=== PATIENT | female | born 1950 ===

== ENCOUNTER 2020-11-12 04:24 | Inpatient (IN) | payer OTHER, BC ==
[2020-11-12] MEDS ORDERED: fentaNYL CITRATE 250 MCG/5 ML VIAL ONE (12:23)
[2020-11-12] MEDS ORDERED: MIDAZOLAM HCL 2 MG/2 ML SINGLE DOSE VIAL ONE (12:23)
[2020-11-12] MEDS ORDERED: TRANEXAMIC ACID 1000 MG/10 ML VIAL ONE ×2 (12:24→13:40)
[2020-11-12] MEDS ORDERED: CLINDAMYCIN PHOSPHATE 600 MG/4 ML VIAL ONE (12:24)
[2020-11-12] MEDS ORDERED: ACETAMINOPHEN INJECTION 100 ML IVPB ONE (12:28)
[2020-11-12] MEDS ORDERED: BUPIVACAINE HCL/PF 0.5% (5MG/ML) 10 ML VIAL ONE (12:36)
[2020-11-12] MEDS ORDERED: THROMBIN (BOVINE) 20,000 UNIT VIAL TP ONE (12:36)
[2020-11-12] MEDS ORDERED: BUPIVACAINE LIPOSOME/PF (EXPAREL) 266 MG/20 ML VIAL ONE (12:36)
[2020-11-12] MEDS ORDERED: VANCOMYCIN 1,000 MG VIAL (RESTRICTED TO ID ONLY) ONE (12:40)
[2020-11-12] MEDS ORDERED: GENTAMICIN SO4 80 MG/2 ML VIAL ONE (12:40)
[2020-11-12] MEDS ORDERED: ROCURONIUM BROMIDE 50 MG/5 ML SYRINGE ONE ×3 (12:57→16:11)
[2020-11-12] MEDS ORDERED: ceFAZolin SODIUM 1 GM VIAL IVPB ONE (13:25)
[2020-11-12] MEDS ORDERED: VANCOMYCIN 1,000 MG VIAL (RESTRICTED TO ID ONLY) IVPB ONE (13:25)
[2020-11-12] MEDS ORDERED: EPHEDRINE SULFATE/0.9% NACL/PF 50 MG/10 ML SYRINGE NR ONE (14:28)
[2020-11-12] MEDS ORDERED: NEOSTIGMINE METHYLSULFATE 0.5 MG/1 ML - 10 ML MDV ONE ×2 (14:55→18:30)
[2020-11-12] MEDS ORDERED: THROMBIN (BOVINE) 5,000 UNIT VIAL TP ONE (14:55)
[2020-11-12] MEDS ORDERED: GELATIN, ABSORBABLE 100 EACH SPONGE TP ONE (14:56)
[2020-11-12] MEDS ORDERED: GLYCOPYRROLATE 0.2 MG/1 ML VIAL ONE ×2 (14:58→18:31)
[2020-11-12] MEDS ORDERED: BUPIVACAINE LIPOSOME/PF (EXPAREL) 266 MG/20 ML VIAL NR ONE ×2 (15:11→17:00)
[2020-11-12] MEDS ORDERED: BUPIVACAINE HCL/PF 0.5% (5 MG/ML) 30 ML VIAL IJ ONE ×2 (15:12→17:00)
[2020-11-12] MEDS ORDERED: diazePAM CARPU-JECT 10 MG/2 ML DISP.SYRIN IVPUSH PRN (19:29)
[2020-11-12] MEDS ORDERED: ONDANSETRON 4 MG/2 ML VIAL IVPUSH PRN (19:29)
[2020-11-12] MEDS ORDERED: LACTATED RINGERS SOLUTION 1,000 ML IV SCH (19:30)
[2020-11-12 20:36] LABS: HEMATOCRIT 32.2 % (32.4-45.2); HEMOGLOBIN 10.6 GM/dL (10.7-15.3); MCH 28.3 pg (25.7-33.7); MEAN CELL VOLUME 85.7 fl (80-96); MEAN PLT VOLUME 9.1 fl (7.5-11.1); PLATELET COUNT 187 K/MM3 (134-434); RBC 3.76 M/mm3 (3.60-5.2); RDW 13.6 % (11.6-15.6); WHITE BLOOD COUNT 14.1 K/mm3 (4.0-10.0)
[2020-11-12] MEDS ORDERED: diazePAM CARPU-JECT 10 MG/2 ML DISP.SYRIN ONE (21:13)
[2020-11-12 21:54] LABS: HIV INTERPRETATION NEGATIVE (NEGATIVE)
[2020-11-12] MEDS: CLINDAMYCIN 900 MG PREMIX IVPB 900 MG/50 ML BAG IVPB SCH (22:49)
[2020-11-12] MEDS: LACTATED RINGERS SOLUTION 1,000 ML IV SCH (22:49)
[2020-11-12] MEDS: GABAPENTIN 300 MG CAPSULE PO SCH (22:50)
[2020-11-12] MEDS: HYDROmorphone HCl 2 MG/ML VIAL SQ PRN (22:50)
[2020-11-12] MEDS ORDERED: CEFAZOLIN 2 GM/D5W 2 GM/50 ML ML IVPB SCH (23:00)
[2020-11-12 23:27] LABS: URINE APPEARANCE CLEAR; URINE BILIRUBIN NEGATIVE (NEGATIVE); URINE COLOR YELLOW; URINE GLUCOSE (UA) NEGATIVE (NEGATIVE); URINE KETONE NEGATIVE (NEGATIVE); URINE LEUK ESTERASE NEGATIVE (NEGATIVE); URINE NITRITE NEGATIVE (NEGATIVE); URINE PROTEIN NEGATIVE (NEGATIVE); URINE UROBILINOGEN 0.2 mg/dL (0.2-1.0)
[2020-11-12 23:28] LABS: CALCIUM 8.4 mg/dL (8.5-10.1)
[2020-11-12 23:29] LABS: BLOOD UREA NITROGEN 14.3 mg/dL (7-18)
[2020-11-12] MEDS ORDERED: AZTREONAM 2 GRAM SYRINGE 2 GM/10 ML DISP.SYRIN IVPUSH ONE ×2 (23:30→23:45)
[2020-11-12 23:32] LABS: CREATININE 0.9 mg/dL (0.55-1.3)
[2020-11-12] MEDS ORDERED: AZTREONAM IVPB ONE (23:45)
[2020-11-12] MEDS ORDERED: WATER IVPB ONE (23:45)
[2020-11-12] MEDS ORDERED: DEXTROSE 5% IVPB ONE (23:45)
[2020-11-13] MEDS: CLINDAMYCIN 900 MG PREMIX IVPB 900 MG/50 ML BAG IVPB SCH ×4 (02:21→21:07)
[2020-11-13] MEDS: ACETAMINOPHEN 1000 MG/100 ML VIAL (NON FORMULARY) IVPB PRN ×2 (02:21→18:35)
[2020-11-13] MEDS: oxyCODONE HCL 5 MG TABLET PO PRN ×3 (04:21→18:30)
[2020-11-13] MEDS: HYDROmorphone HCl 2 MG/ML VIAL SQ PRN ×3 (04:44→21:00)
[2020-11-13] MEDS ORDERED: LEVOTHYROXINE NA 112 MCG TABLET (FP) ONE (05:19)
[2020-11-13] MEDS ORDERED: LEVOTHYROXINE NA 25 MCG TABLET (FP) ONE (05:19)
[2020-11-13] MEDS: LEVOTHYROXINE 112 MCG, LEVOTHYROXINE 25 MCG PO SCH (06:03)
[2020-11-13] MEDS: LACTATED RINGERS SOLUTION 1,000 ML IV SCH (08:36)
[2020-11-13 09:01] LABS: BASO % 0.2 % (0-2.0); EOS % 0.2 % (0-4.5); HEMATOCRIT 28.1 % (32.4-45.2); HEMOGLOBIN 9.4 GM/dL (10.7-15.3); MCH 28.7 pg (25.7-33.7); MCHC 33.4 g/dl (32.0-36.0); MEAN PLT VOLUME 9.6 fl (7.5-11.1); MONO % 8.4 % (3.8-10.2); NEUT % 82.2 % (42.8-82.8); PLATELET COUNT 177 K/MM3 (134-434); RBC 3.27 M/mm3 (3.60-5.2); RDW 13.6 % (11.6-15.6); WHITE BLOOD COUNT 14.6 K/mm3 (4.0-10.0)
[2020-11-13] MEDS: SERTRALINE HCL 50 MG TABLET (FP) PO SCH (09:05)
[2020-11-13] MEDS: GABAPENTIN 300 MG CAPSULE PO SCH ×2 (09:05→21:12)
[2020-11-13 09:31] LABS: ALBUMIN 3.3 g/dl (3.4-5.0); CALCIUM 8.4 mg/dL (8.5-10.1)
[2020-11-13 09:37] LABS: BILIRUBIN,TOTAL 0.7 mg/dL (0.2-1); TOT PROT 6.1 g/dl (6.4-8.2)
[2020-11-13] MEDS ORDERED: PATIENT'S OWN MEDICATION (NON-FORMULARY) (Levothyroxine Sodium [Levothyroxine] 137 MCG Cap PO SCH (10:00)
[2020-11-13] MEDS ORDERED: LACTATED RINGERS SOLUTION 1,000 ML IV SCH (18:22)
[2020-11-13] MEDS: DOCUSATE SODIUM 100 MG CAPSULE (FP) PO SCH (21:12)
[2020-11-13] MEDS: ROSUVASTATIN CA 20 MG TABLET (FP) PO SCH (21:12)
[2020-11-14] MEDS: CLINDAMYCIN 900 MG PREMIX IVPB 900 MG/50 ML BAG IVPB SCH ×2 (03:16→08:51)
[2020-11-14] MEDS: HYDROmorphone HCl 2 MG/ML VIAL SQ PRN (03:16)
[2020-11-14] MEDS ORDERED: morphine SULFATE 4 MG/ML VIAL IVPUSH ONE (04:13)
[2020-11-14] MEDS ORDERED: LEVOTHYROXINE NA 112 MCG TABLET (FP) ONE (05:53)
[2020-11-14] MEDS ORDERED: LEVOTHYROXINE NA 25 MCG TABLET (FP) ONE (05:53)
[2020-11-14] MEDS: LEVOTHYROXINE 112 MCG, LEVOTHYROXINE 25 MCG PO SCH (06:10)
[2020-11-14 08:46] LABS: HEMATOCRIT 26.4 % (32.4-45.2); HEMOGLOBIN 8.7 GM/dL (10.7-15.3); MCH 28.5 pg (25.7-33.7); MCHC 32.8 g/dl (32.0-36.0); MEAN CELL VOLUME 86.9 fl (80-96); MEAN PLT VOLUME 9.8 fl (7.5-11.1); PLATELET COUNT 192 K/MM3 (134-434); RBC 3.04 M/mm3 (3.60-5.2)
[2020-11-14] MEDS: ACETAMINOPHEN 1000 MG/100 ML VIAL (NON FORMULARY) IVPB PRN (08:50)
[2020-11-14] MEDS: ONDANSETRON 4 MG/2 ML VIAL IVPUSH PRN (08:51)
[2020-11-14] MEDS: SERTRALINE HCL 50 MG TABLET (FP) PO SCH (09:00)
[2020-11-14 09:12] LABS: CALCIUM 8.7 mg/dL (8.5-10.1)
[2020-11-14 09:13] LABS: ALBUMIN 3.2 g/dl (3.4-5.0); BLOOD UREA NITROGEN 24.7 mg/dL (7-18)
[2020-11-14 09:16] LABS: CREATININE 0.8 mg/dL (0.55-1.3)
[2020-11-14 09:17] LABS: BILIRUBIN,TOTAL 0.7 mg/dL (0.2-1); TOT PROT 6.4 g/dl (6.4-8.2)
[2020-11-14] MEDS: GABAPENTIN 300 MG CAPSULE PO SCH ×2 (09:43→21:11)
[2020-11-14] MEDS: DOCUSATE SODIUM 100 MG CAPSULE (FP) PO SCH ×2 (09:44→21:11)
[2020-11-14] MEDS: oxyCODONE HCL 5 MG TABLET PO PRN ×3 (10:21→21:12)
[2020-11-14] MEDS: ceFAZolin 2 GRAM PREMIX BAG IVPB SCH ×3 (11:00→21:55)
[2020-11-14 17:07] LABS: HEP B CORE AB, TOT Positive (Negative)
[2020-11-14] MEDS ORDERED: PT OWN MED DRAWER 7, Y5N ONE (17:07)
[2020-11-14] MEDS: ACETAMINOPHEN 325 MG TABLET (FP) PO SCH ×2 (18:09→23:29)
[2020-11-14] MEDS: ROSUVASTATIN CA 20 MG TABLET (FP) PO SCH (21:11)
[2020-11-15] MEDS: oxyCODONE HCL 5 MG TABLET PO PRN ×2 (01:39→14:28)
[2020-11-15] MEDS: ceFAZolin 2 GRAM PREMIX BAG IVPB SCH (03:37)
[2020-11-15 04:56] LABS: HEMATOCRIT 28.7 % (32.4-45.2); HEMOGLOBIN 9.6 GM/dL (10.7-15.3); MCH 28.9 pg (25.7-33.7); MCHC 33.4 g/dl (32.0-36.0); MEAN CELL VOLUME 86.6 fl (80-96); MEAN PLT VOLUME 9.3 fl (7.5-11.1); PLATELET COUNT 146 K/MM3 (134-434); RBC 3.31 M/mm3 (3.60-5.2); RDW 13.9 % (11.6-15.6); WHITE BLOOD COUNT 14.3 K/mm3 (4.0-10.0)
[2020-11-15] MEDS ORDERED: LEVOTHYROXINE NA 112 MCG TABLET (FP) ONE (05:05)
[2020-11-15] MEDS ORDERED: LEVOTHYROXINE NA 25 MCG TABLET (FP) ONE (05:05)
[2020-11-15] MEDS: ACETAMINOPHEN 325 MG TABLET (FP) PO SCH ×3 (05:09→20:28)
[2020-11-15] MEDS: LEVOTHYROXINE 112 MCG, LEVOTHYROXINE 25 MCG PO SCH (06:13)
[2020-11-15 09:05] LABS: HEMATOCRIT 27.4 % (32.4-45.2); HEMOGLOBIN 9.3 GM/dL (10.7-15.3); MCH 29.2 pg (25.7-33.7); MEAN CELL VOLUME 85.9 fl (80-96); MEAN PLT VOLUME 9.1 fl (7.5-11.1); PLATELET COUNT 147 K/MM3 (134-434); RBC 3.19 M/mm3 (3.60-5.2); RDW 13.9 % (11.6-15.6); WHITE BLOOD COUNT 13.4 K/mm3 (4.0-10.0)
[2020-11-15 09:27] LABS: CALCIUM 8.7 mg/dL (8.5-10.1)
[2020-11-15 09:28] LABS: ALBUMIN 2.9 g/dl (3.4-5.0); BLOOD UREA NITROGEN 21.9 mg/dL (7-18)
[2020-11-15 09:31] LABS: CREATININE 0.6 mg/dL (0.55-1.3)
[2020-11-15 09:32] LABS: BILIRUBIN,TOTAL 0.8 mg/dL (0.2-1)
[2020-11-15 09:33] LABS: TOT PROT 6.1 g/dl (6.4-8.2)
[2020-11-15] MEDS: SERTRALINE HCL 50 MG TABLET (FP) PO SCH (09:33)
[2020-11-15] MEDS: GABAPENTIN 300 MG CAPSULE PO SCH ×2 (09:33→22:20)
[2020-11-15] MEDS: DOCUSATE SODIUM 100 MG CAPSULE (FP) PO SCH ×2 (09:33→22:20)
[2020-11-15] MEDS: ROSUVASTATIN CA 20 MG TABLET (FP) PO SCH (22:21)
[2020-11-16] MEDS ORDERED: MORPHINE SULFATE 2 MG/ML VIAL IVPUSH ONE (03:45)
[2020-11-16] MEDS ORDERED: LEVOTHYROXINE NA 25 MCG TABLET (FP) ONE (05:39)
[2020-11-16] MEDS ORDERED: LEVOTHYROXINE NA 112 MCG TABLET (FP) ONE (05:39)
[2020-11-16] MEDS: ACETAMINOPHEN 325 MG TABLET (FP) PO SCH ×3 (06:09→13:41)
[2020-11-16] MEDS: LEVOTHYROXINE 112 MCG, LEVOTHYROXINE 25 MCG PO SCH (06:09)
[2020-11-16 08:59] LABS: HEMATOCRIT 26.6 % (32.4-45.2); HEMOGLOBIN 9.1 GM/dL (10.7-15.3); MCH 29.3 pg (25.7-33.7); MCHC 34.4 g/dl (32.0-36.0); MEAN CELL VOLUME 85.3 fl (80-96); MEAN PLT VOLUME 9.5 fl (7.5-11.1); PLATELET COUNT 160 K/MM3 (134-434); RBC 3.12 M/mm3 (3.60-5.2); RDW 13.5 % (11.6-15.6); WHITE BLOOD COUNT 11.2 K/mm3 (4.0-10.0)
[2020-11-16 09:28] LABS: CALCIUM 8.8 mg/dL (8.5-10.1)
[2020-11-16 09:29] LABS: ALBUMIN 2.8 g/dl (3.4-5.0); BLOOD UREA NITROGEN 17.9 mg/dL (7-18)
[2020-11-16 09:32] LABS: CREATININE 0.4 mg/dL (0.55-1.3)
[2020-11-16 09:33] LABS: BILIRUBIN,TOTAL 0.8 mg/dL (0.2-1); TOT PROT 6.3 g/dl (6.4-8.2)
[2020-11-16] MEDS: DOCUSATE SODIUM 100 MG CAPSULE (FP) PO SCH ×2 (10:01→21:17)
[2020-11-16] MEDS: SERTRALINE HCL 50 MG TABLET (FP) PO SCH (10:01)
[2020-11-16] MEDS: GABAPENTIN 300 MG CAPSULE PO SCH ×2 (10:01→21:17)
[2020-11-16] MEDS ORDERED: MAGNESIUM HYDROX 2400MG/30ML ORAL SUSPENSION 30 ML CUP PO PRN (13:54)
[2020-11-16] MEDS: amLODIPine BESYLATE 2.5 MG TABLET (FP) PO SCH (14:27)
[2020-11-16] MEDS: oxyCODONE HCL 5 MG TABLET PO PRN ×2 (16:55→22:38)
[2020-11-16] MEDS ORDERED: amLODIPine BESYLATE 2.5 MG TABLET (FP) PO ONE (19:53)
[2020-11-16] MEDS: ROSUVASTATIN CA 20 MG TABLET (FP) PO SCH (21:17)
[2020-11-17] MEDS ORDERED: LEVOTHYROXINE NA 112 MCG TABLET (FP) ONE (05:06)
[2020-11-17] MEDS ORDERED: LEVOTHYROXINE NA 25 MCG TABLET (FP) ONE (05:06)
[2020-11-17] MEDS: oxyCODONE HCL 5 MG TABLET PO PRN ×5 (05:20→23:53)
[2020-11-17] MEDS: LEVOTHYROXINE 112 MCG, LEVOTHYROXINE 25 MCG PO SCH (06:04)
[2020-11-17 08:00] LABS: HEMATOCRIT 30.2 % (32.4-45.2); HEMOGLOBIN 10.6 GM/dL (10.7-15.3); MCH 29.4 pg (25.7-33.7); MEAN CELL VOLUME 84.1 fl (80-96); MEAN PLT VOLUME 8.7 fl (7.5-11.1); PLATELET COUNT 219 K/MM3 (134-434); RBC 3.59 M/mm3 (3.60-5.2); RDW 13.5 % (11.6-15.6); WHITE BLOOD COUNT 11.9 K/mm3 (4.0-10.0)
[2020-11-17 08:12] LABS: BLOOD UREA NITROGEN 12.1 mg/dL (7-18); CALCIUM 8.9 mg/dL (8.5-10.1)
[2020-11-17 08:15] LABS: CREATININE 0.5 mg/dL (0.55-1.3)
[2020-11-17] MEDS: SERTRALINE HCL 50 MG TABLET (FP) PO SCH (09:20)
[2020-11-17] MEDS: GABAPENTIN 300 MG CAPSULE PO SCH ×2 (09:20→21:22)
[2020-11-17] MEDS: DOCUSATE SODIUM 100 MG CAPSULE (FP) PO SCH ×2 (09:21→21:22)
[2020-11-17] MEDS: amLODIPine BESYLATE 2.5 MG TABLET (FP) PO SCH (09:21)
[2020-11-17] MEDS: NYSTATIN 500,000 UNITS/5 ML SUSPENSION PO SCH ×2 (17:41→23:53)
[2020-11-17] MEDS: ROSUVASTATIN CA 20 MG TABLET (FP) PO SCH (21:22)
[2020-11-18] MEDS: oxyCODONE HCL 5 MG TABLET PO PRN ×4 (04:31→21:46)
[2020-11-18] MEDS ORDERED: LEVOTHYROXINE NA 25 MCG TABLET (FP) ONE (05:10)
[2020-11-18] MEDS ORDERED: LEVOTHYROXINE NA 112 MCG TABLET (FP) ONE (05:10)
[2020-11-18] MEDS ORDERED: morphine SULFATE 4 MG/ML VIAL IVPUSH ONE (05:38)
[2020-11-18] MEDS: NYSTATIN 500,000 UNITS/5 ML SUSPENSION PO SCH ×4 (05:56→23:45)
[2020-11-18] MEDS: LEVOTHYROXINE 112 MCG, LEVOTHYROXINE 25 MCG PO SCH (06:13)
[2020-11-18 07:54] LABS: BASO % 0.2 % (0-2.0); EOS % 3.6 % (0-4.5); HEMATOCRIT 30.3 % (32.4-45.2); HEMOGLOBIN 10.7 GM/dL (10.7-15.3); LYMPH % 14.6 % (8-40); MCH 29.3 pg (25.7-33.7); MCHC 35.2 g/dl (32.0-36.0); MEAN CELL VOLUME 83.3 fl (80-96); MEAN PLT VOLUME 8.4 fl (7.5-11.1); MONO % 10.4 % (3.8-10.2); NEUT % 71.2 % (42.8-82.8); PLATELET COUNT 239 K/MM3 (134-434); RBC 3.64 M/mm3 (3.60-5.2); RDW 13.7 % (11.6-15.6); WHITE BLOOD COUNT 11.8 K/mm3 (4.0-10.0)
[2020-11-18 08:26] LABS: ALBUMIN 2.8 g/dl (3.4-5.0); BLOOD UREA NITROGEN 16.9 mg/dL (7-18); MAGNESIUM 1.9 mg/dL (1.8-2.4)
[2020-11-18 08:28] LABS: CREATININE 0.6 mg/dL (0.55-1.3); PHOSPHOROUS 3.4 mg/dL (2.5-4.9)
[2020-11-18 08:30] LABS: TOT PROT 6.6 g/dl (6.4-8.2)
[2020-11-18] MEDS: SERTRALINE HCL 50 MG TABLET (FP) PO SCH (09:37)
[2020-11-18] MEDS: DOCUSATE SODIUM 100 MG CAPSULE (FP) PO SCH ×2 (09:37→21:00)
[2020-11-18] MEDS: amLODIPine BESYLATE 2.5 MG TABLET (FP) PO SCH (09:37)
[2020-11-18] MEDS: GABAPENTIN 300 MG CAPSULE PO SCH ×2 (09:38→21:00)
[2020-11-18] MEDS: BACITRACIN 15 GM TUBE TOPICAL OINTMENT TP SCH ×2 (14:54→21:00)
[2020-11-18] MEDS ORDERED: amLODIPine BESYLATE 5 MG TABLET (FP) PO ONE (20:29)
[2020-11-18] MEDS: ROSUVASTATIN CA 20 MG TABLET (FP) PO SCH (21:00)
[2020-11-19] MEDS: oxyCODONE HCL 5 MG TABLET PO PRN ×4 (01:48→19:01)
[2020-11-19] MEDS ORDERED: LEVOTHYROXINE NA 25 MCG TABLET (FP) ONE (05:09)
[2020-11-19] MEDS ORDERED: LEVOTHYROXINE NA 112 MCG TABLET (FP) ONE (05:10)
[2020-11-19] MEDS ORDERED: POTASSIUM CHLORIDE TABS 20 MEQ TABLET.ER (FP) PO ONE (05:22)
[2020-11-19] MEDS: NYSTATIN 500,000 UNITS/5 ML SUSPENSION PO SCH ×3 (05:38→17:14)
[2020-11-19] MEDS: LEVOTHYROXINE 112 MCG, LEVOTHYROXINE 25 MCG PO SCH (06:04)
[2020-11-19] MEDS: SERTRALINE HCL 50 MG TABLET (FP) PO SCH (09:00)
[2020-11-19] MEDS: amLODIPine BESYLATE 2.5 MG TABLET (FP) PO SCH (09:00)
[2020-11-19] MEDS: GABAPENTIN 300 MG CAPSULE PO SCH ×2 (09:00→21:20)
[2020-11-19] MEDS: BACITRACIN 15 GM TUBE TOPICAL OINTMENT TP SCH ×2 (09:00→21:23)
[2020-11-19] MEDS: DOCUSATE SODIUM 100 MG CAPSULE (FP) PO SCH ×2 (09:00→21:20)
[2020-11-19] MEDS: ONDANSETRON 4 MG/2 ML VIAL IVPUSH PRN (10:25)
[2020-11-19] MEDS ORDERED: FAMOTIDINE 20 MG TABLET PO ONE (11:00)
[2020-11-19 11:40] LABS: CALCIUM 9.2 mg/dL (8.5-10.1)
[2020-11-19 11:41] LABS: BLOOD UREA NITROGEN 14.2 mg/dL (7-18)
[2020-11-19 11:44] LABS: CREATININE 0.5 mg/dL (0.55-1.3); PHOSPHOROUS 2.8 mg/dL (2.5-4.9)
[2020-11-19 11:45] LABS: BASO % 0.3 % (0-2.0); EOS % 3.6 % (0-4.5); HEMATOCRIT 34.6 % (32.4-45.2); HEMOGLOBIN 11.8 GM/dL (10.7-15.3); LYMPH % 10.6 % (8-40); MCH 28.7 pg (25.7-33.7); MCHC 34.3 g/dl (32.0-36.0); MEAN CELL VOLUME 83.6 fl (80-96); MEAN PLT VOLUME 8.8 fl (7.5-11.1); MONO % 7.8 % (3.8-10.2); NEUT % 77.7 % (42.8-82.8); PLATELET COUNT 281 K/MM3 (134-434); RBC 4.13 M/mm3 (3.60-5.2); RDW 13.6 % (11.6-15.6); WHITE BLOOD COUNT 12.6 K/mm3 (4.0-10.0)
[2020-11-19 12:37] LABS: ANISOCYTOSIS 0; MACROCYTOSIS 0; PLATELET ESTIMATE NORMAL
[2020-11-19] MEDS: ROSUVASTATIN CA 20 MG TABLET (FP) PO SCH (21:20)
[2020-11-20] MEDS: NYSTATIN 500,000 UNITS/5 ML SUSPENSION PO SCH ×4 (00:14→17:24)
[2020-11-20] MEDS: oxyCODONE HCL 5 MG TABLET PO PRN ×4 (01:00→17:31)
[2020-11-20] MEDS ORDERED: LEVOTHYROXINE NA 25 MCG TABLET (FP) ONE (05:05)
[2020-11-20] MEDS ORDERED: LEVOTHYROXINE NA 112 MCG TABLET (FP) ONE (05:05)
[2020-11-20] MEDS: LEVOTHYROXINE 112 MCG, LEVOTHYROXINE 25 MCG PO SCH (06:10)
[2020-11-20 08:40] LABS: BASO % 0.3 % (0-2.0); EOS % 3.7 % (0-4.5); HEMOGLOBIN 10.8 GM/dL (10.7-15.3); LYMPH % 15.9 % (8-40); MCH 28.4 pg (25.7-33.7); MCHC 33.8 g/dl (32.0-36.0); MEAN CELL VOLUME 83.9 fl (80-96); MEAN PLT VOLUME 8.8 fl (7.5-11.1); MONO % 7.8 % (3.8-10.2); NEUT % 72.3 % (42.8-82.8); PLATELET COUNT 271 K/MM3 (134-434); RBC 3.82 M/mm3 (3.60-5.2); RDW 13.5 % (11.6-15.6); WHITE BLOOD COUNT 13.2 K/mm3 (4.0-10.0)
[2020-11-20 09:03] LABS: CALCIUM 9.2 mg/dL (8.5-10.1)
[2020-11-20 09:04] LABS: BLOOD UREA NITROGEN 11.1 mg/dL (7-18)
[2020-11-20 09:07] LABS: CREATININE 0.5 mg/dL (0.55-1.3); PHOSPHOROUS 2.8 mg/dL (2.5-4.9)
[2020-11-20 09:08] LABS: BILIRUBIN,TOTAL 0.8 mg/dL (0.2-1); TOT PROT 6.4 g/dl (6.4-8.2)
[2020-11-20] MEDS: DOCUSATE SODIUM 100 MG CAPSULE (FP) PO SCH ×2 (09:17→21:16)
[2020-11-20] MEDS: GABAPENTIN 300 MG CAPSULE PO SCH ×2 (09:17→21:16)
[2020-11-20] MEDS: amLODIPine BESYLATE 2.5 MG TABLET (FP) PO SCH (09:17)
[2020-11-20] MEDS: SERTRALINE HCL 50 MG TABLET (FP) PO SCH (09:17)
[2020-11-20] MEDS: LACTOBACILLUS ACIDOPHILUS 1 TABLET PO SCH (09:17)
[2020-11-20] MEDS: BACITRACIN 15 GM TUBE TOPICAL OINTMENT TP SCH ×2 (09:18→21:17)
[2020-11-20] MEDS ORDERED: ALBUTEROL SO4 HFA INHALER IH PRN (09:37)
[2020-11-20 17:29] LABS: EPI CELLS 7 /uL (0-25.1); HYALINE CASTS 13 /uL (0-3.1); URINE APPEARANCE CLEAR; URINE BACTERIA 580 /uL (0-1359); URINE BILIRUBIN 1+ (NEGATIVE); URINE COLOR DK YELLOW; URINE GLUCOSE (UA) NEGATIVE (NEGATIVE); URINE KETONE NEGATIVE (NEGATIVE); URINE LEUK ESTERASE 2+ (NEGATIVE); URINE NITRITE NEGATIVE (NEGATIVE); URINE PROTEIN 2+ (NEGATIVE); URINE RBC 16 /uL (0-23.9); URINE WBC 163 /uL (0-25.8)
[2020-11-20] MEDS: ACETAMINOPHEN 1000 MG/100 ML VIAL (NON FORMULARY) IVPB PRN (18:46)
[2020-11-20] MEDS: ROSUVASTATIN CA 20 MG TABLET (FP) PO SCH (21:16)
[2020-11-20 23:56] VITALS: BMI 32.9
[2020-11-21] MEDS: NYSTATIN 500,000 UNITS/5 ML SUSPENSION PO SCH ×3 (00:03→13:15)
[2020-11-21] MEDS: oxyCODONE HCL 5 MG TABLET PO PRN ×2 (02:13→06:08)
[2020-11-21] MEDS ORDERED: LEVOTHYROXINE NA 112 MCG TABLET (FP) ONE (05:30)
[2020-11-21] MEDS ORDERED: LEVOTHYROXINE NA 25 MCG TABLET (FP) ONE (05:30)
[2020-11-21] MEDS: LEVOTHYROXINE 112 MCG, LEVOTHYROXINE 25 MCG PO SCH (06:03)
[2020-11-21 08:59] LABS: BASO % 0.3 % (0-2.0); EOS % 4.5 % (0-4.5); HEMATOCRIT 32.6 % (32.4-45.2); LYMPH % 13.8 % (8-40); MCH 28.2 pg (25.7-33.7); MCHC 33.7 g/dl (32.0-36.0); MEAN CELL VOLUME 83.7 fl (80-96); MEAN PLT VOLUME 8.3 fl (7.5-11.1); NEUT % 73.4 % (42.8-82.8); PLATELET COUNT 297 K/MM3 (134-434); RBC 3.89 M/mm3 (3.60-5.2); RDW 13.3 % (11.6-15.6)
[2020-11-21 09:19] LABS: CALCIUM 9.1 mg/dL (8.5-10.1)
[2020-11-21 09:20] LABS: BLOOD UREA NITROGEN 11.8 mg/dL (7-18); MAGNESIUM 2.2 mg/dL (1.8-2.4)
[2020-11-21 09:23] LABS: BILIRUBIN,TOTAL 0.7 mg/dL (0.2-1); CREATININE 0.5 mg/dL (0.55-1.3); PHOSPHOROUS 3.3 mg/dL (2.5-4.9); TOT PROT 6.6 g/dl (6.4-8.2)
[2020-11-21] MEDS: GABAPENTIN 300 MG CAPSULE PO SCH (09:49)
[2020-11-21] MEDS: LACTOBACILLUS ACIDOPHILUS 1 TABLET PO SCH (09:49)
[2020-11-21] MEDS: SERTRALINE HCL 50 MG TABLET (FP) PO SCH (09:50)
[2020-11-21] MEDS: amLODIPine BESYLATE 2.5 MG TABLET (FP) PO SCH (09:50)
[2020-11-21] MEDS: ACETAMINOPHEN 1000 MG/100 ML VIAL (NON FORMULARY) IVPB PRN (09:53)
[2020-11-21] MEDS ORDERED: PT OWN MED DRAWER 7, Y5N ONE (10:58)
[2020-11-21] MEDS: BACITRACIN 15 GM TUBE TOPICAL OINTMENT TP SCH (11:30)
[2020-11-21 11:54] LABS: ANISOCYTOSIS 0; MACROCYTOSIS 0; PLATELET ESTIMATE NORMAL
[2020-11-21] MEDS ORDERED: oxyCODONE HCL 5 MG TABLET PO PRN (13:24)
[2020-11-21] MEDS ORDERED: PANTOPRAZOLE 40 MG TABLET PO SCH (14:45)
[2020-11-21 16:16] VITALS: BP 142/64; PULSE 70; TEMP 97.9
[2020-11-21] MEDS ORDERED: DOCUSATE SODIUM 100 MG CAPSULE (FP) PO SCH (22:00)
[2020-11-22] MEDS ORDERED: MULTIVITAMINS (DAILY MVI) TABLET (FP) PO SCH (10:00)
== END 2020-11-21 17:59 | DRG 454 ==
LOC: J2C 04:24 → J8W 22:24
PROVIDERS: ADMIT Orthopaedic Surgery Adult Reconstructive Orthopaedic Surgery; ATTEND Internal Medicine
PROC: 0SG10AJ Fusion of 2 or more Lumbar Vertebral Joints with Interbody Fusion Device, Posterior Approach, Anterior Column, Open Approach (ICD-10-PCS; 2020-11-12)
PROC: 0SG0071 Fusion of Lumbar Vertebral Joint with Autologous Tissue Substitute, Posterior Approach, Posterior Column, Open Approach (ICD-10-PCS; 2020-11-12)
PROC: 0SG30AJ Fusion of Lumbosacral Joint with Interbody Fusion Device, Posterior Approach, Anterior Column, Open Approach (ICD-10-PCS; 2020-11-12)
PROC: 0QB00ZZ Excision of Lumbar Vertebra, Open Approach (ICD-10-PCS; 2020-11-12)
PROC: 0JX70ZZ Transfer Back Subcutaneous Tissue and Fascia, Open Approach (ICD-10-PCS; 2020-11-12)
PROC: 0SG30AJ Fusion of Lumbosacral Joint with Interbody Fusion Device, Posterior Approach, Anterior Column, Open Approach (ICD-10-PCS; 2020-11-12)
PROC: B01BZZZ Fluoroscopy of Spinal Cord (ICD-10-PCS; 2020-11-12)
PROC: 01NB0ZZ Release Lumbar Nerve, Open Approach (ICD-10-PCS; principal; 2020-11-12 13:32)
DX: M48.062 Spinal stenosis, lumbar region with neurogenic claudication (principal); N39.0 Urinary tract infection, site not specified; M51.16 Intervertebral disc disorders with radiculopathy, lumbar region; M51.17 Intervertebral disc disorders with radiculopathy, lumbosacral region; M47.27 Other spondylosis with radiculopathy, lumbosacral region; M48.07 Spinal stenosis, lumbosacral region; E03.9 Hypothyroidism, unspecified; E78.5 Hyperlipidemia, unspecified; F32.9 Major depressive disorder, single episode, unspecified; B19.20 Unspecified viral hepatitis C without hepatic coma; E66.9 Obesity, unspecified; Z68.33 Body mass index [BMI] 33.0-33.9, adult; D64.9 Anemia, unspecified; R33.9 Retention of urine, unspecified; D72.829 Elevated white blood cell count, unspecified; R50.9 Fever, unspecified; I10 Essential (primary) hypertension; B96.20 Unspecified Escherichia coli [E. coli] as the cause of diseases classified elsewhere
CPT/HCPCS: 36415; 36430; 72131-TC; 80048; 80053; 81003; 83735; 84100; 84460; 85025; 85027; 86704; 86706; 86707; 86708; 86709; 86850; 86900; 86901; 86922; 87086; 87186; 87340; 87389; 87522; 93005; 93010; 94010; 94760; 97116-GP; 97162-GP; C9803; J0131; P9058; U0003; U0005